=== PATIENT | female | born 1955 | race Hispanic/Latino ===

== ENCOUNTER 2016-09-29 12:51 | Outpatient (CLI) | payer OTHER | END 2016-09-29 12:52 | disposition home or self-care (01) | LOC: LABHHL 12:51 | PROVIDERS: ATTEND Surgery | DX: D05.12 Intraductal carcinoma in situ of left breast (principal); R92.0 Mammographic microcalcification found on diagnostic imaging of breast | CPT/HCPCS: 88305; 88361 ==

== ENCOUNTER 2016-11-05 06:48 | Day surgery (SDC) | payer OTHER ==
[~2016-11-05 06:48] MED LIST: WATER FOR IRRIG STERILE IR ONE
[2016-11-05] MEDS ORDERED: ANCEF/STERILE WATER 2 GM/20 ML IV NR (07:00)
[2016-11-05] MEDS ORDERED: NACL 0.9% 1000 ML 1,000 ML IV SCH (07:00)
[2016-11-05] MEDS ORDERED: VERSED IV NR (07:00)
[2016-11-05] MEDS ORDERED: PEPCID PO NR ×2 (07:00→10:00)
--- NOTE | 2016-11-05 07:34 | Anesthesia Day of Surgery ---
Anesthesia Day of Surgery - Day of Surgery Patient Examined: Yes Patient H&P Reviewed: Yes Patient is NPO: Yes
--- NOTE | 2016-11-05 07:34 | Anesthesia Consultation ---
Anesthesia Consult and Med Hx Date of service: 11/05/16 - Airway Anesthetic Teeth Evaluation: Good ROM Head & Neck: Adequate Mental/Hyoid Distance: Adequate Mallampati Class: Class II Intubation Access Assessment: Probably Good - Pulmonary Exam CTA: Yes - Cardiac Exam Cardiac Exam: RRR - Pre-Operative Health Status ASA Pre-Surgery Classification: ASA2 Proposed Anesthetic Plan: General - Pulmonary Hx Smoking: Yes (STOPPED X 10 YRS- 1 PPD X 30 YRS) Hx Sleep Apnea: No (ANTHONY PRE SCREEN LOW RISK) - Cardiovascular System Hx Hypertension: No (HX LOW BP) - Central Nervous System Hx Psychiatric Problems: Yes (Anxiety/Depression) - Hematic Hx Anemia: Yes ( CHILD ONLY) - Other Systems Hx Alcohol Use: Yes (1-2 DRINKS PER DAY)
[2016-11-05] MEDS ORDERED: DILAUDID IV PRN (09:16)
[2016-11-05] MEDS ORDERED: ZEMURON IV ONE (09:28)
[2016-11-05] MEDS ORDERED: XYLOCAINE MPF 2% ONE (09:28)
[2016-11-05] MEDS ORDERED: DILAUDID ONE (09:28)
[2016-11-05] MEDS ORDERED: DIPRIVAN 10 MG/ML IV ONE (09:29)
[2016-11-05] MEDS ORDERED: NEO SYNEPHRINE/NS Syringe(OR USE) IV ONE (09:30)
[2016-11-05] MEDS ORDERED: DECADRON ONE ×2 (09:38→12:09)
[2016-11-05] MEDS ORDERED: MARCAINE-EPI 0.5%-1:200,000 INFILTRATI ONE (09:38)
[2016-11-05] MEDS ORDERED: NEURONTIN PO NR (10:00)
[2016-11-05] MEDS ORDERED: ZOFRAN IV PRN (10:00)
[2016-11-05] MEDS ORDERED: SUBLIMAZE IV ONE (10:00)
--- NOTE | 2016-11-05 10:38 | Mammography Report ---
Left breast a localization procedure. History: Biopsy proven left breast cancer. Procedure: The patient's prior images were reviewed. A biopsy clip and adjacent micro-calcifications were to be localized. The patient's skin surface was prepped and draped using sterile technique. Local anesthetic was injected into the skin. Using mammographic guidance, a 5 cm Brown needle was advanced into the region of interest in close proximity to both the biopsy clip and the adjacent microcalcifications. Satisfactory localization was accomplished and a hookwire was left in place. The patient tolerated the procedure well clinically and was sent to the OR in satisfactory condition.
[2016-11-05] MEDS ORDERED: ePHEDrine SULFATE ONE (11:20)
[2016-11-05] MEDS ORDERED: BLOXIVERZ ONE (11:23)
[2016-11-05] MEDS ORDERED: ROBINUL ONE (11:23)
[2016-11-05] MEDS ORDERED: WATER FOR IRRIG STERILE IR ONE (11:49)
[2016-11-05] MEDS ORDERED: ZOFRAN ONE (12:09)
[2016-11-05] MEDS ORDERED: NACL 0.9% 1000 ML 1,000 ML ONE (12:31)
--- NOTE | 2016-11-05 12:50 | Short Stay Summary ---
Short Stay Documentation Date of service: 11/05/16 - History H&P: obtained from office - Allergies and Medications Current Medications: Allergies No Known Allergies Allergy (Verified 10/30/16 14:28) Home Medications Medication Instructions Recorded Confirmed Last Taken Type Calcium Carbonate [Calcium] 500 mg PO DAILY 10/30/16 11/05/16 11/04/16 07:00 History Ibuprofen [Motrin] 800 mg PO Q8HR PRN 10/30/16 11/05/16 11/03/16 12:00 History RX: Biotin 1 mg PO DAILY 10/30/16 11/05/16 11/04/16 07:00 History RX: Magnesium 200 mg PO DAILY 10/30/16 11/05/16 11/04/16 07:00 History HYDROcodone/APAP 5-325 [[place] 1 each PO Q6HR PRN #30 tablet 11/05/16 Unknown Rx 5/325] Vitamin K2 11/05/16 11/04/16 07:00 History Active Medications Cefazolin Sodium (Ancef/Sterile Water 2 Gm/20 Ml) 2 gm IV PREOP NR Stop: 11/05/16 23:59 Hydromorphone HCl (Dilaudid) 0.5 mg IV Q10MIN PRN PRN Reason: Pain , Severe (7-10) Stop: 11/05/16 15:00 Sodium Chloride (Nacl 0.9% 1000 Ml) 1,000 mls @ 100 mls/hr IV DIRECT FAITH Last Admin: 11/05/16 09:37 Dose: 100 mls/hr Midazolam HCl (Versed) 2 mg IV PREOP NR Stop: 11/05/16 23:59 Last Admin: 11/05/16 09:36 Dose: 2 mg - Brief post op/procedure progress note Date of procedure: 11/05/16 Pre-op diagnosis: Left breast cancer of the upper outer quadrant Post-op diagnosis: same Procedure: Left breast needle localization partial mastectomy and SLNB Anesthesia: GETA Findings: 2 SLNs and radiograph specimen with clip and microcalcifications present Surgeon: ZARIA ANTONIO Estimated blood loss: minimal Pathology: list (left partial mastectomy and SLNsx2) Specimen disposition: to lab Condition: stable - Disposition Condition at discharge: Good Disposition: DC-01 TO HOME OR SELFCARE Short Stay Discharge Plan Activity: other (no heavy lifting) Diet: regular Wound: other (keep incision clean and dry; may shower in 24 hours; no baths, pools or lakes; do not rub or scrub incision) Follow up with: DIYA PETERSON MD [Primary Care Provider] - 7 Days ZARIA ANTONIO MD [Staff Physician] - 7 Days Prescriptions: HYDROcodone/APAP 5-325 [[place] 5/325] 1 each PO Q6HR PRN #30 tablet PRN Reason: Pain
--- NOTE | 2016-11-05 13:00 | Mammography Report ---
Operative surgical specimen: A single specimen is submitted. The specimen includes the targeted marker and localizer wire as well as some small focal microcalcifications near the wire.
--- NOTE | 2016-11-05 13:02 | Operative Report ---
Operative Report Operative Report: Date of service: 11/05/2016 Preoperative diagnosis: Left breast cancer of the upper outer quadrant Postoperative diagnosis: Same Procedure: Complex ;eft breast needle localization partial mastectomy and sentinel lymph node biopsy Surgeon: Indigo Castellano M.D. Anesthesia: Gen. Findings: 2 sentinel lymph nodes identified and radiograph specimen of partial mastectomy with clip and microcalcifications present Complications: None Estimated blood loss: Minimal Drains: None Disposition: PACU in good condition Indications for operative procedure: This is a 61-year-old postmenopausal lady with newly diagnosed stage I left breast cancer. Recommendations were to proceed with a left breast partial mastectomy and sentinel lymph node staging. Patient wished to proceed with the above procedure. Procedure in detail: The patient was taken to the operating room and was laid supine. Anesthesia placed left pectoral muscle block prior to going to the operating room. Gen. anesthesia was administered without any complications. The left breast and axilla were prepped and draped in the normal sterile operative fashion. The nipple was injected with radioisotope. The gamma probe was inserted into the axilla for identification of sentinel lymph node location. A skin incision was made in the left axilla with a 15 blade knife with dissection taken down to the subcutaneous tissues. The gamma probe was inserted into the axilla with 2 sentinel lymph nodes identified and appropriately dissected free. Remaining counts were less than 10% of the highest count. Hemostasis was noted. Axillary cavity was irrigated and suctioned. Axillary fascia was approximated and closed using an interrupted 3-0 Vicryl. The skin was closed using a running 4-0 Monocryl followed by skin affix. Attention was then taken towards the left breast. The wire was identified of the left upper outer quadrant. A lateral breast incision was made with 15 blade knife with dissection taken down to the subcutaneous tissues. First began raising of the superior flap taken down superiorly to the pectoralis muscle, followed by raising of the lateral flap, inferior flap and medial flap with dissection taken down posteriorly to the pectoralis muscle. The wire was not encountered. Area of concern was removed from the pectoralis muscle. The partial mastectomy was appropriately marked. Specimen was then sent to radiology with findings of wire, clip and microcalcifications present. Hemostasis was obtained within the breast cavity. Breast cavity was then irrigated and suctioned. Breast tissue was approximated and closed using interrupted 3-0 Vicryl and skin brought together and closed using a running 4-0 Monocryl followed by skin affix. She tolerated surgery very well and was awakened from anesthesia without any complications and transported to PACU in good condition.
--- NOTE | 2016-11-05 15:18 | Post Anesthesia Evaluation ---
- Post Anesthesia Evaluation Patient Participated: Yes Airway Patent: Yes Stable Respiratory Function: Yes Nausea/Vomiting: No Temp > 96.8F: Yes Pain Manageable: Yes Adequeate Hydration: Yes Anesthesia Complications: No Block Receding Appropriately: Not Applicable Patient on Ventilator: No
[2016-11-05 17:56] VITALS: BP 115/62
== END 2016-11-05 14:55 | disposition home or self-care (01) ==
LOC: OR 06:48
PROVIDERS: ATTEND Surgery
DX: C50.412 Malignant neoplasm of upper-outer quadrant of left female breast (principal); D64.9 Anemia, unspecified; F41.9 Anxiety disorder, unspecified; Z87.891 Personal history of nicotine dependence; Z72.89 Other problems related to lifestyle; Z98.890 Other specified postprocedural states; Z79.82 Long term (current) use of aspirin
CPT/HCPCS: 19281; 19301; 38525; 38792; 64450; 76098; 78800; 88307; 88341; 88342; A9541; J0690; J1100; J1170; J2250; J2370; J2405; J2704; J2710; J3010; J7030; 88305; 88333